=== PATIENT | male | born 1990 | race Caucasian/White ===

== ENCOUNTER 2017-01-29 21:58 | Emergency (ER) | payer OTHER ==
[~2017-01-29] VITALS: Ht 162.5 cm; Wt 63.5 kg
[~2017-01-29 21:58] MED LIST: BACTRIM DS 8001 TA1 PO; CATAFLAM50 MG PO; CEPHALEXIN500 M1 PO; CLONIDINE0.1 MG; KEFLEX500 MG PO; TOPAMAX50 MG
[2017-01-29 22:04] VITALS: BP 132/77
== END 2017-01-29 22:41 | disposition home or self-care (01) ==
LOC: ED 21:58
DX: T22.212A Burn of second degree of left forearm, initial encounter (principal); F17.200 Nicotine dependence, unspecified, uncomplicated; Z88.8 Allergy status to other drugs, medicaments and biological substances; Z88.5 Allergy status to narcotic agent; X19.XXXA Contact with other heat and hot substances, initial encounter; Y93.89 Activity, other specified; Y92.69 Other specified industrial and construction area as the place of occurrence of the external cause; Y99.9 Unspecified external cause status

== ENCOUNTER 2017-05-29 17:30 | Emergency (ER) | payer OTHER ==
[~2017-05-29] VITALS: Ht 162.5 cm; Wt 72.6 kg
[2017-05-29] MEDS ORDERED: NAPROSYN500 MG PO (17:49)
[2017-05-29 18:26] VITALS: BP 122/78
== END 2017-05-29 18:26 | disposition home or self-care (01) ==
LOC: ED 17:30
DX: S93.401A Sprain of unspecified ligament of right ankle, initial encounter (principal); F17.200 Nicotine dependence, unspecified, uncomplicated; Z88.1 Allergy status to other antibiotic agents; Z88.8 Allergy status to other drugs, medicaments and biological substances; X58.XXXA Exposure to other specified factors, initial encounter; Y93.44 Activity, trampolining; Y92.89 Other specified places as the place of occurrence of the external cause; Y99.8 Other external cause status

== ENCOUNTER 2017-09-21 12:32 | Emergency (ER) | payer OTHER ==
[~2017-09-21] VITALS: Ht 162.5 cm; Wt 68.0 kg
[~2017-09-21 12:32] MED LIST changes: +NAPROSYN500 MG PO
[2017-09-21 12:34] VITALS: BP 107/64
[2017-09-21] MEDS ORDERED: MEDROL DOSEPAK4 MG PO (14:55)
[2017-09-21] MEDS ORDERED: CYCLOBENZAPRINE10 MG PO (14:55)
[2017-09-21] MEDS ORDERED: NAPROSYN500 MG PO (14:55)
== END 2017-09-21 13:34 | disposition home or self-care (01) ==
LOC: ED 12:32
DX: M54.12 Radiculopathy, cervical region (principal); Z88.8 Allergy status to other drugs, medicaments and biological substances; Z88.5 Allergy status to narcotic agent; Z88.6 Allergy status to analgesic agent

== ENCOUNTER 2017-10-03 17:21 | Emergency (ER) | payer OTHER ==
[~2017-10-03] VITALS: Ht 162.5 cm; Wt 76.2 kg
[~2017-10-03 17:21] MED LIST changes: +CYCLOBENZAPRINE10 MG PO; +MEDROL DOSEPAK4 MG PO
[2017-10-03 17:24] VITALS: BP 106/65
[2017-10-03] MEDS ORDERED: ZOVIRAX800 MG PO (17:49)
== END 2017-10-03 17:52 | disposition home or self-care (01) ==
LOC: ED 17:21
DX: R21 Rash and other nonspecific skin eruption (principal); Z88.8 Allergy status to other drugs, medicaments and biological substances; Z88.5 Allergy status to narcotic agent

== ENCOUNTER 2017-11-01 14:08 | Emergency (ER) | payer OTHER ==
[~2017-11-01] VITALS: Ht 162.5 cm; Wt 72.6 kg
[~2017-11-01 14:08] MED LIST changes: +ZOVIRAX800 MG PO
[2017-11-01 14:10] VITALS: BP 129/70
[2017-11-01] MEDS ORDERED: PREDNISONE10 MG PO (14:13)
== END 2017-11-01 14:45 | disposition home or self-care (01) ==
LOC: ED 14:08
DX: L23.7 Allergic contact dermatitis due to plants, except food (principal); R03.0 Elevated blood-pressure reading, without diagnosis of hypertension; F10.10 Alcohol abuse, uncomplicated; Z88.8 Allergy status to other drugs, medicaments and biological substances; Z88.5 Allergy status to narcotic agent

== ENCOUNTER 2018-01-25 16:29 | Emergency (ER) | payer SELFPAY ==
[~2018-01-25] VITALS: Wt 72.6 kg
[2018-01-25 16:29] VITALS: BP 109/65
[~2018-01-25 16:29] MED LIST changes: +PREDNISONE10 MG PO
[2018-01-25] MEDS ORDERED: ROBITUSSIN DM 101 OZ PO (17:18)
[2018-01-25] MEDS ORDERED: ZYRTEC10 M3 PO (17:18)
[2018-01-25] MEDS ORDERED: FLONASE ALLERG9.9 ML NAS (17:18)
[2018-01-25] MEDS ORDERED: PREDNISONE20 M1 PO (17:18)
== END 2018-01-25 17:55 | disposition home or self-care (01) ==
LOC: ED 16:29
DX: J06.9 Acute upper respiratory infection, unspecified (principal); R05 Cough; R19.7 Diarrhea, unspecified; H93.8X3 Other specified disorders of ear, bilateral; R11.0 Nausea; F17.200 Nicotine dependence, unspecified, uncomplicated; Z79.899 Other long term (current) drug therapy; Z88.8 Allergy status to other drugs, medicaments and biological substances

== ENCOUNTER 2018-05-16 19:46 | Emergency (ER) | payer OTHER ==
[~2018-05-16] VITALS: Ht 162.5 cm; Wt 72.6 kg
[~2018-05-16 19:46] MED LIST changes: +FLONASE ALLERG9.9 ML NAS; +IBUPROFEN600 MG PO; +PREDNISONE20 M1 PO; +ROBITUSSIN DM 101 OZ PO; +ZYRTEC10 M3 PO
[2018-05-16 19:47] VITALS: BP 128/76
== END 2018-05-16 20:26 | disposition home or self-care (01) ==
LOC: ED 19:46
DX: S61.211A Laceration without foreign body of left index finger without damage to nail, initial encounter (principal); F17.200 Nicotine dependence, unspecified, uncomplicated; Z88.8 Allergy status to other drugs, medicaments and biological substances; Z79.899 Other long term (current) drug therapy; W26.0XXA Contact with knife, initial encounter; Y93.G9 Activity, other involving cooking and grilling; Y92.89 Other specified places as the place of occurrence of the external cause; Y99.8 Other external cause status

== ENCOUNTER 2019-01-01 18:00 | Emergency (ER) | payer OTHER ==
[~2019-01-01] VITALS: Ht 162.5 cm; Wt 77.1 kg
[2019-01-01 18:02] VITALS: BP 146/71
[2019-01-03 18:06] LABS: GONOCOCCUS BY NAA Negative (Negative)
== END 2019-01-01 18:32 | disposition home or self-care (01) ==
LOC: ED 18:00
PROVIDERS: Physician Assistant
DX: Z20.2 Contact with and (suspected) exposure to infections with a predominantly sexual mode of transmission (principal); Z88.8 Allergy status to other drugs, medicaments and biological substances

== ENCOUNTER 2020-08-30 13:37 | Emergency (ER) | payer SELFPAY ==
[~2020-08-30] VITALS: Ht 162.5 cm; Wt 72.6 kg
[2020-08-30 13:43] VITALS: BP 155/90
[2020-08-30] MEDS ORDERED: AUGMENTIN 875875 MG PO (14:12)
== END 2020-08-30 15:08 | disposition home or self-care (01) ==
LOC: ED 13:37
DX: H00.031 Abscess of right upper eyelid (principal); L03.213 Periorbital cellulitis; F12.90 Cannabis use, unspecified, uncomplicated; Z88.5 Allergy status to narcotic agent; Z88.8 Allergy status to other drugs, medicaments and biological substances

== ENCOUNTER 2021-01-28 12:40 | Emergency (ER) | payer SELFPAY ==
[~2021-01-28] VITALS: Wt 68.0 kg
[~2021-01-28 12:40] MED LIST changes: +AUGMENTIN 875875 MG PO
== END 2021-01-28 16:03 | disposition left against medical advice (07) ==
LOC: ED 12:40
DX: R42 Dizziness and giddiness (principal); R11.0 Nausea; R19.7 Diarrhea, unspecified; Z53.21 Procedure and treatment not carried out due to patient leaving prior to being seen by health care provider

== ENCOUNTER 2021-06-10 16:14 | Emergency (ER) | payer SELFPAY ==
[~2021-06-10] VITALS: Ht 162.5 cm; Wt 68.0 kg
[2021-06-10 16:19] VITALS: BP 137/74
[2021-06-10] MEDS ORDERED: AUGMENTIN 875875 MG PO (20:03)
== END 2021-06-10 20:00 | disposition left against medical advice (07) ==
LOC: ED 16:14
DX: S02.601A Fracture of unspecified part of body of right mandible, initial encounter for closed fracture (principal); F17.200 Nicotine dependence, unspecified, uncomplicated; Z88.8 Allergy status to other drugs, medicaments and biological substances; Z79.2 Long term (current) use of antibiotics; Y04.8XXA Assault by other bodily force, initial encounter; Y93.89 Activity, other specified; Y92.89 Other specified places as the place of occurrence of the external cause; Y99.8 Other external cause status

== ENCOUNTER 2021-07-02 15:15 | Emergency (ER) | payer SELFPAY ==
[~2021-07-02] VITALS: Wt 68.0 kg
[2021-07-02 16:03] LABS: BASO # 0.1 10*3/uL (0.0-0.1); BASO % 0.6 % (0.0-1.0); EOS # 0.3 10*3/uL (0.0-0.4); EOS % 2.1 % (1.0-4.0); HEMATOCRIT 38.7 % (42.0-52.0); LYMPH # 1.8 10*3/uL (1.3-4.4); LYMPH % 14.8 % (27.0-41.0); MEAN CELL VOLUME 91.1 fl (80.0-94.0); MEAN CORPUSCULAR HGB 31.5 pg (27.0-31.0); MEAN CORPUSCULAR HGB CONC 34.6 g/dl (33.0-37.0); MEAN PLATELET VOLUME 9.9 fl (9.6-12.3); MONO % 8.2 % (3.0-9.0); NEUT # 8.9 10*3/uL (2.3-7.9); PLATELET COUNT AUTOMATED 423 10*3/uL (130-400); RED BLOOD COUNT 4.25 10*6/uL (4.50-5.90); RED CELL DISTRI WIDTH 12.7 % (0-14.5)
[2021-07-02 16:30] LABS: ALKALINE PHOSPHATASE 109 U/L (45-117); BUN 16 mg/dl (7-24); CHLORIDE 111 mmol/L (98-107); CREATININE 0.97 mg/dL (0.70-1.30); POTASSIUM 3.5 mmol/L (3.5-5.1); SGOT/AST 11 IU/L (3-35); SGPT/ALT 19 U/L (12-78); SODIUM 138 mmol/L (136-145); TOTAL PROTEIN 7.7 gm/dL (6.4-8.2)
[2021-07-03 14:40] VITALS: BP 129/79
== END 2021-07-03 16:25 | disposition short-term general hospital (02) ==
LOC: ED 15:15
PROVIDERS: Physician Assistant
DX: A41.9 Sepsis, unspecified organism (principal); L02.01 Cutaneous abscess of face; Z88.8 Allergy status to other drugs, medicaments and biological substances

== ENCOUNTER 2021-12-25 15:41 | Emergency (ER) | payer OTHER ==
[~2021-12-25] VITALS: Ht 162.5 cm; Wt 68.0 kg
[2021-12-25 15:48] VITALS: BP 104/66
[2021-12-25] MEDS ORDERED: Motrin,Rufen800 MG PO (17:44)
== END 2021-12-25 17:51 | disposition home or self-care (01) ==
LOC: ED 15:41
DX: S46.912A Strain of unspecified muscle, fascia and tendon at shoulder and upper arm level, left arm, initial encounter (principal); F17.200 Nicotine dependence, unspecified, uncomplicated; Z88.5 Allergy status to narcotic agent; Z88.8 Allergy status to other drugs, medicaments and biological substances; V49.59XA Passenger injured in collision with other motor vehicles in traffic accident, initial encounter; Y93.89 Activity, other specified; Y92.413 State road as the place of occurrence of the external cause; Y99.9 Unspecified external cause status

== ENCOUNTER 2022-01-07 09:05 | Emergency (ER) | payer SELFPAY ==
[~2022-01-07] VITALS: Ht 162.5 cm; Wt 68.0 kg
[~2022-01-07 09:05] MED LIST changes: +Motrin,Rufen800 MG PO
[2022-01-07 09:13] VITALS: BP 117/67
== END 2022-01-07 09:56 | disposition home or self-care (01) ==
LOC: ED 09:05
DX: I83.811 Varicose veins of right lower extremity with pain (principal); Z88.8 Allergy status to other drugs, medicaments and biological substances

== ENCOUNTER 2024-08-28 07:19 | Emergency (ER) | payer MEDICAID ==
[~2024-08-28] VITALS: Ht 162.5 cm; Wt 70.3 kg
[2024-08-28 07:36] VITALS: BP 107/70
[2024-08-28] MEDS ORDERED: QUETIAPINE FUM100 M3 PO (07:37)
[2024-08-28 08:54] LABS: BASO # 0.1 10*3/uL (0.0-0.1); BASO % 0.6 % (0.0-1.0); EOS # 0.1 10*3/uL (0.0-0.4); EOS % 0.8 % (1.0-4.0); HEMATOCRIT 44.6 % (42.0-52.0); MEAN CELL VOLUME 90.5 fl (80.0-94.0); MEAN CORPUSCULAR HGB 31.6 pg (27.0-31.0); MEAN PLATELET VOLUME 9.2 fl (9.6-12.3); MONO # 1.5 10*3/uL (0.1-1.0); MONO % 10.3 % (3.0-9.0); NEUT # 10.4 10*3/uL (2.3-7.9); NEUT % 72.8 % (47.0-73.0); PLATELET COUNT AUTOMATED 342 10*3/uL (130-400); RED BLOOD COUNT 4.93 10*6/uL (4.50-5.90); RED CELL DISTRI WIDTH 12.5 % (0-14.5); WHITE BLOOD COUNT 14.3 10*3/uL (4.8-10.8)
[2024-08-28] MEDS ORDERED: Naloxone Hydrochloride 2 MG/2 ML SYR NAS ONE (09:05)
[2024-08-28 09:19] LABS: BUN 19 mg/dl (9-23); CHLORIDE 106 mmol/L (98-107); POTASSIUM 3.9 mmol/L (3.4-5.1)
[2024-08-28 09:23] LABS: ETHYL ALCOHOL < 3.0 mg/dl (<3)
== END 2024-08-28 11:11 | disposition home or self-care (01) ==
LOC: ED 07:19
PROVIDERS: Internal Medicine
DX: R53.83 Other fatigue (principal); Z20.822 Contact with and (suspected) exposure to COVID-19; Z88.8 Allergy status to other drugs, medicaments and biological substances; Z79.899 Other long term (current) drug therapy

== ENCOUNTER 2025-03-22 15:37 | Emergency (ER) | payer MEDICAID ==
[~2025-03-22 15:37] MED LIST changes: +QUETIAPINE FUM100 M3 PO
[2025-03-22 15:55] VITALS: BP 134/71
[2025-03-22] MEDS ORDERED: HYDROCORTISONE T (16:53)
== END 2025-03-22 17:02 | disposition home or self-care (01) ==
LOC: ED 15:37
DX: L30.1 Dyshidrosis [pompholyx] (principal); J45.909 Unspecified asthma, uncomplicated; F32.A Depression, unspecified; F90.9 Attention-deficit hyperactivity disorder, unspecified type; Z88.8 Allergy status to other drugs, medicaments and biological substances